=== PATIENT | female | born 1950 | race Caucasian/White ===

== ENCOUNTER 2020-12-11 08:49 | Outpatient (CLI) | payer MEDICARE, OTHER | END 2020-12-11 08:50 | disposition home or self-care (01) | LOC: CSHMAMMO 08:49 | PROVIDERS: ATTEND Family Medicine | DX: Z12.31 Encounter for screening mammogram for malignant neoplasm of breast (principal); M85.851 Other specified disorders of bone density and structure, right thigh; M85.852 Other specified disorders of bone density and structure, left thigh; M81.0 Age-related osteoporosis without current pathological fracture; Z80.3 Family history of malignant neoplasm of breast | CPT/HCPCS: 77063; 77067; 77080 ==

== ENCOUNTER 2021-05-08 13:46 | Outpatient (CLI) | payer MEDICARE, OTHER | END 2021-05-08 13:47 | disposition home or self-care (01) | LOC: CSHRAD 13:46 | PROVIDERS: ATTEND Family Medicine | DX: Z01.818 Encounter for other preprocedural examination (principal); I10 Essential (primary) hypertension | CPT/HCPCS: 71046 ==

== ENCOUNTER 2021-10-21 16:54 | Outpatient (CLI) | payer MEDICARE, OTHER | END 2021-10-21 16:55 | disposition home or self-care (01) | LOC: CSHRAD 16:54 | PROVIDERS: ATTEND Internal Medicine Rheumatology | DX: M81.0 Age-related osteoporosis without current pathological fracture (principal); M47.9 Spondylosis, unspecified; M47.814 Spondylosis without myelopathy or radiculopathy, thoracic region; Z98.1 Arthrodesis status; M51.36 Other intervertebral disc degeneration, lumbar region; M41.86 Other forms of scoliosis, lumbar region; M43.16 Spondylolisthesis, lumbar region | CPT/HCPCS: 72070; 72100 ==

== ENCOUNTER 2022-04-07 14:50 | Outpatient (CLI) | payer MEDICARE, OTHER ==
[~2022-04-07 14:50] MED LIST: Iopamidol 370 76% 100 ML VIAL ONE
== END 2022-04-07 14:51 | disposition home or self-care (01) ==
LOC: CSHCT 14:50
PROVIDERS: ATTEND Family Medicine
DX: I10 Essential (primary) hypertension (principal)
CPT/HCPCS: 74175; 82565

== ENCOUNTER 2023-04-26 09:28 | Outpatient (CLI) | payer MEDICARE, OTHER | END 2023-04-26 09:29 | disposition home or self-care (01) | LOC: CSHMRI 09:28 | PROVIDERS: ATTEND Surgery | DX: M47.26 Other spondylosis with radiculopathy, lumbar region (principal); Z98.890 Other specified postprocedural states; M43.16 Spondylolisthesis, lumbar region; M48.061 Spinal stenosis, lumbar region without neurogenic claudication | CPT/HCPCS: 72110; 72148 ==

== ENCOUNTER 2024-12-10 13:32 | Outpatient (CLI) | payer MEDICARE, OTHER | END 2024-12-10 13:33 | disposition home or self-care (01) | LOC: CSHULT 13:32 | PROVIDERS: ATTEND Family Medicine | DX: R19.00 Intra-abdominal and pelvic swelling, mass and lump, unspecified site (principal) | CPT/HCPCS: 76705 ==